=== PATIENT | male | born 1980 | race Caucasian/White ===

== ENCOUNTER 2021-04-22 14:42 | Inpatient (IN) | payer MEDICARE, SELFPAY ==
[2021-04-22 15:15] VITALS: BP 162/98; PULSE 70; RESP 20; TEMP 36.7; O2SAT 92
[2021-04-22 17:21] VITALS: PULSE 70; RESP 16; O2SAT 97
[2021-04-22] MEDS: gabapentin 300 mg Capsule 600 MG PO (21:11)
[2021-04-22] MEDS: haloperidol 5 mg Tablet 10 MG PO (21:15)
[2021-04-22 22:00] VITALS: BP 155/111; PULSE 75; RESP 20; TEMP 36.7; O2SAT 94
[2021-04-23 06:00] VITALS: BP 142/86; PULSE 84; RESP 20; TEMP 36.7; O2SAT 91
[2021-04-23] MEDS: gabapentin 300 mg Capsule 600 MG PO ×3 (09:20→21:23)
[2021-04-23] MEDS: quetiapine 300 mg Tablet PO ×2 (09:21→21:55)
[2021-04-23] MEDS: lisinopril 5 mg Tablet PO (09:21)
[2021-04-23] MEDS: atorvastatin 40 mg Tablet 20 MG PO (09:21)
[2021-04-23] MEDS: citalopram 20 mg Tablet 40 MG PO (09:21)
[2021-04-23] MEDS: haloperidol 5 mg Tablet 10 MG PO ×3 (09:21→21:23)
[2021-04-23] MEDS: cyanocobalamin 1,000 mcg Tablet 2000 MCG PO (09:22)
[2021-04-23] MEDS: trazodone 100 mg Tablet PO (09:22)
[2021-04-23] MEDS: acetaminophen 325 mg Tablet 650 MG PO (12:56)
[2021-04-23 13:08] VITALS: PULSE 107; RESP 18; O2SAT 96
[2021-04-23] MEDS: albuterol 8 gm MDI 2 PUFF INHALATION (13:28)
[2021-04-23 14:00] VITALS: BP 118/65; PULSE 94; RESP 20; TEMP 35.8; O2SAT 95
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
[2021-04-23] MEDS: propranolol 20 mg Tablet 10 MG PO (21:24)
[2021-04-23 22:00] VITALS: BP 118/65; PULSE 94; RESP 20; TEMP 35.8; O2SAT 95
[2021-04-24 06:00] VITALS: BP 118/65; PULSE 94; RESP 20; TEMP 35.8; O2SAT 95
[2021-04-24] MEDS: atorvastatin 40 mg Tablet 20 MG PO (09:16)
[2021-04-24] MEDS: citalopram 20 mg Tablet 40 MG PO (09:17)
[2021-04-24] MEDS: trazodone 100 mg Tablet PO (09:17)
[2021-04-24] MEDS: lisinopril 5 mg Tablet PO (09:17)
[2021-04-24] MEDS: haloperidol 5 mg Tablet 10 MG PO ×2 (09:17→15:35)
[2021-04-24] MEDS: gabapentin 300 mg Capsule 600 MG PO ×2 (09:17→15:35)
[2021-04-24] MEDS: cyanocobalamin 1,000 mcg Tablet 2000 MCG PO (09:18)
[2021-04-24 09:25] VITALS: PULSE 94; RESP 20; O2SAT 95
[2021-04-24] MEDS: albuterol 8 gm MDI 2 PUFF INHALATION (09:25)
[2021-04-24] MEDS: acetaminophen 325 mg Tablet 650 MG PO ×2 (12:49→16:37)
[2021-04-24 14:00] VITALS: BP 164/104; PULSE 83; RESP 17; TEMP 36.7; O2SAT 93
--- NOTE | 2021-04-24 14:52 | PC.RESP ---
SMOKING CESSATION INFORMATION SENT TO PATIENT.
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
[2021-04-24 15:50] VITALS: BP 164/104; PULSE 83; RESP 17; TEMP 36.7; O2SAT 93
== END 2021-04-24 17:20 | disposition home or self-care (01) | DRG 885 ==
PROVIDERS: Admitting Provider Psychiatry & Neurology Psychiatry; Visit Provider Psychiatry & Neurology Psychiatry
DX: F20.9 Schizophrenia, unspecified (principal); Z68.45 Body mass index [BMI] 70 or greater, adult; E66.01 Morbid (severe) obesity due to excess calories; Z72.820 Sleep deprivation
CPT/HCPCS: 94640; 94660; 97150; 97165; J3535